=== PATIENT | female | born 1965 | race Caucasian/White ===

== ENCOUNTER 2017-11-15 17:08 | Emergency (ER) | payer SELFPAY ==
[2017-11-15 17:48] VITALS: BP 119/95
[2017-11-15] MEDS ORDERED: TYLENOL/CODEINE PO ONE (18:21)
[2017-11-15] MEDS ORDERED: DELTASONE PO ONE (18:21)
--- NOTE | 2017-11-15 19:15 | XRay Report ---
FINAL REPORT PROCEDURE: Chest. TECHNIQUE: PA and lateral views. HISTORY: Cough, fever, malaise. COMPARISON: No prior studies are available for comparison. FINDINGS: The heart and mediastinum appear normal. The lungs are clear and well expanded. There are no pleural effusions. The soft tissues and regional skeleton are unremarkable. IMPRESSION: Normal study.
--- NOTE | 2017-11-15 19:24 | Emergency Department Report ---
Minor Respiratory - HPI Chief Complaint: Fever Stated Complaint: FLU LIKE SYMPTOMS Time Seen by Provider: 11/15/17 18:22 Duration: 5 Days Minor Respiratory: Yes Able to Tolerate Fluids, Yes Cough, Yes Sick Contacts ( was sick with cold last week), Yes Chest Pain (with coughing), Yes Fever (states she felt hot,did not measure), No Rhinorrhea, No Sore Throat, No Ear Pain, No Hemoptysis, No Shortness of Breath Other History: Patient is a 52-year-old female who presents cc of cough and body aches. started 3 days. ED Review of Systems ROS: Stated complaint: FLU LIKE SYMPTOMS Other details as noted in HPI Constitutional: denies: chills, fever Eyes: denies: eye pain, eye discharge, vision change ENT: denies: ear pain, throat pain Respiratory: denies: cough, shortness of breath, wheezing Cardiovascular: denies: chest pain, palpitations Endocrine: no symptoms reported Gastrointestinal: denies: abdominal pain, nausea, diarrhea Genitourinary: denies: urgency, dysuria, discharge Musculoskeletal: denies: back pain, joint swelling, arthralgia Skin: denies: rash, lesions Neurological: denies: headache, weakness, paresthesias Psychiatric: denies: anxiety, depression Hematological/Lymphatic: denies: easy bleeding, easy bruising ED Past Medical Hx - Past Medical History Hx Hypertension: Yes Hx Asthma: Yes - Surgical History Hx Appendectomy: Yes - Social History Smoking Status: Never Smoker Substance Use Type: None - Medications Home Medications: Home Medications Medication Instructions Recorded Confirmed Last Taken Type Benzonatate [Tessalon Perles] 100 mg PO Q8HR #30 capsule 11/15/17 Unknown Rx Ibuprofen [Motrin] 800 mg PO Q8HR PRN #30 tablet 11/15/17 Unknown Rx guaiFENesin ER [Mucinex ER] 600 mg PO Q12H #20 tablet.er 11/15/17 Unknown Rx Minor Respiratory Exam - Exam General: Vital signs noted. No distress. Alert and acting appropriately. HEENT: Yes Moist Mucous Membranes, No Pharyngeal Erythema, No Pharyngeal Exudates, No Rhinorrhea, No Conjuctival Injection, No Frontal Tenderness, No Maxillary Tenderness Ear: Neither TM Bulge, Neither TM Erythema, Neither EAC Pain, Neither EAC Discharge Neck: Yes Supple, No Adenopathy Lungs: Yes Good Air Exchange, No Wheezes, No Ronchi, No Stridor, No Cough, No Labored Respirations, No Retractions, No Use of Accessory Muscles, No Other Abnormal Lung Sounds Heart: Yes Regular, No Murmur Abdomen: Yes Normal Bowel Sounds, No Tenderness, No Peritoneal Signs Skin: No Rash, No Edema Neurologic: Alert and oriented, no deficits. Musculoskeletal: Unremarkable. ED Course Vital Signs 11/15/17 11/15/17 17:37 18:35 Temperature 99.5 F Pulse Rate 77 Respiratory 18 16 Rate Blood Pressure 119/95 O2 Sat by Pulse 99 Oximetry ED Medical Decision Making - Radiology Data Radiology results: report reviewed, image reviewed FINAL REPORT PROCEDURE: Chest. TECHNIQUE: PA and lateral views. HISTORY: Cough, fever, malaise. COMPARISON: No prior studies are available for comparison. FINDINGS: The heart and mediastinum appear normal. The lungs are clear and well expanded. There are no pleural effusions. The soft tissues and regional skeleton are unremarkable. IMPRESSION: Normal study. Transcribed By: MRM Dictated By: THANH NICHOLAS MD Electronically Authenticated By: THANH NICHOLAS MD Signed Date/Time: 11/15/17 1510 - Medical Decision Making 52-year-old female presents with viral syndrome/ Upper resp Infection. Fever resolved no fever during the ED stay. Patient received Tylenol with codeine and prednisone ED Did not perform rapid flu test a ED due to patient fever resolved and prior to ED arrival and had no fever in ED. Chest x-ray ordered. Chest x-ray shows no acute abnormality,See reported above Discussed with Pt symptomatic relief with [id number] medications. Discussed continue Motrin as needed for fever and pain. Discussed increase fluids and diet intake. Discussed rest much needed. Discussed daily vitamin C for immune booster. Discussed follow-up with PCP in 3-5 days. Discussed with the patient that if symptoms worsen or new symptoms arise to return to ED immediately Patient's verbally states she understands and will comply the following instructions and follow-up Vital signs stable. Patient is in no acute distress. Critical care attestation.: If time is entered above; I have spent that time in minutes in the direct care of this critically ill patient, excluding procedure time. ED Disposition Clinical Impression: Viral syndrome, URI with cough and congestion Disposition: - TO HOME OR SELFCARE Is pt being admited?: No Does the pt Need Aspirin: No Condition: Stable Instructions: Upper Respiratory Infection (ED), Acute Bronchitis (ED), Viral Syndrome (ED) Additional Instructions: Make sure to follow up with the primary care physician as discussed. Take all your medications as you've been prescribed. If you have any worsening symptoms or develop new symptoms please return to ED immediately. Prescriptions: Benzonatate [Tessalon Perles] 100 mg PO Q8HR #30 capsule guaiFENesin ER [Mucinex ER] 600 mg PO Q12H #20 tablet.er Ibuprofen [Motrin] 800 mg PO Q8HR PRN #30 tablet PRN Reason: Pain Referrals: PRIMARY CARE,MD [Primary Care Provider] - 3-5 Days [facility] [Outside] - 3-5 Days [facility] [Outside] - 3-5 Days Forms: Accompanied Note, Work/School Release Form(ED) Time of Disposition: 19:50 Print Language: WELSH
== END 2017-11-15 20:04 | disposition home or self-care (01) ==
LOC: ED 17:08
DX: B34.9 Viral infection, unspecified (principal); J06.9 Acute upper respiratory infection, unspecified; I10 Essential (primary) hypertension
CPT/HCPCS: 71046; 99283; J7512